=== PATIENT | male | born 1965 | race Two or more races ===

== ENCOUNTER 2025-08-22 14:36 | Inpatient (IN) | payer MEDICAID, OTHER ==
[~2025-08-22] VITALS: Ht 172.7 cm; Wt 84.5 kg
--- NOTE | 2025-08-22 15:28 | ED.PDOC ---
HPI Comments 59 year old male with no PMHx presents to the ED with a chief complaint of chest pain onset 1 week. Patient states he has been experiencing LT sided, chest pain described as a stabbing and pressure sensation for the past week. He is also experiencing generalized weakness, headache, shortness of breath, nausea, intermittent LT arm numbness. He went to see PCP, Dr. Mackenzie, was recommended to come to ED. Denies fever, chills, cough, cold, congestion, dizziness, blurred vision, abdominal pain, vomiting, diarrhea, dysuria. No other symptoms or modifying factors present at this time. Chief Complaint: Chest Pain Time Seen by MD: 15:10 Reviewed Notes: Nurses Notes, Medications, Allergies Allergies: Coded Allergies: NO KNOWN ALLERGIES (Unverified , 08/22/25) Information Source: Patient Mode of Arrival: Ambulatory Severity: Moderate Timing: Weeks Duration: Since onset Prehospital treatment: None Quality: Stabbing, Pressure Onset: At Rest Cardiac Risk Factors: None PE Risk Factors: None History of: None Modifying Factors: Nothing Associated Signs and Symptoms: SOB Past Medical History PAST MEDICAL HISTORY: Denies Surgical History: Denies all surgeries Family History Family History: Reviewed,noncontributory to illness, No family hx of Cancer, No family hx of DM, No family hx of Heart teri, No family hx of HTN, No family hx ofKidney teri, No family hx of Liver teri, No family hx of Lung teri, No family hx of Stroke Social History Smoker: Non-Smoker Alcohol: Occasionally Drugs: Denies Drug Use Lives In: Home Constitutional: reports: weakness; denies: chills, diaphoresis, fatigue, fever, malaise, sweats, others EENTM: denies: blurred vision, double vision, ear bleeding, ear discharge, ear drainage, ear pain, ear ringing, eye pain, eye redness, hearing loss, mouth ryan n, mouth swelling, nasal discharge, nose bleeding, nose congestion, nose pain, photophobia, tearing, throat pain, throat swelling, voice changes, others Respiratory: reports: shortness of breath; denies: cough, hemoptysis, orthopnea, SOB at rest, SOB with excertion, stridor, wheezing, others Cardiovascular: reports: chest pain; denies: dizzy spells, diaphoresis, Dyspnea on exertion, edema, irregular heart beat, left arm pain, lightheadedness, palpitations, PND, syncope, others Gastrointestinal: reports: nausea; denies: abdomen distended, abdominal pain, blood streaked bowels, constipated, diarrhea, dysphagia, difficulty swallowing, hematemesis, melena, poor appetite, poor fluid intake, rectal bleeding, rectal pain, vomiting, others Genitourinary: denies: burning, dysuria, flank pain, frequency, hematuria, incontinence, penile discharge, penile sore, pain, testicle pain, testicle swelling, urgency, others Neurological: reports: headache, weakness; denies: dizziness, fainting, left sided numbness, left sided weakness, numbness, paresthesia, pre-existing deficit, right sided numbness, right sided weakness, seizure, speech problems, tingling, tremors, others Musculoskeletal: denies: back pain, gout, joint pain, joint swelling, muscle pain, muscle stiffness, neck pain, others Integumetry: denies: bruises, change in color, change in hair/nails, dryness, laceration, lesions, lumps, rash, wounds, others Allergic/Immunocompromised: denies: Difficulty Healing, Frequent Infections, Hives, Itching, others Hematologic/Lymphatic: denies: anemia, blood clots, easy bleeding, easy bruising, swollen glands, others Endocrine: denies: excessive hunger, excessive sweating, excessive thirst, excessive urination, flushing, intolerance to cold, intolerance to heat, unexplained weight gain, unexplained weight loss, others Psychiatric: denies: anxiety, bipolar disorder, depression, hopeless, panic disorder, schizophrenia, sleepless, suicidal, others All Other Systems: Reviewed and Negative Physical Exam General Appearance: Moderate Distress HEENT: Normal ENT Inspection, Pharynx Normal, TMs Normal Neck: Full Range of Motion, Non-Tender, Normal, Normal Inspection Respiratory: Chest Non-Tender, Lungs Clear, No Accessory Muscle Use, No Respiratory Distress, Normal Breath Sounds Cardiovascular: No Edema, No JVD, No Murmur, No Gallop, Normal Peripheral Pulses, Regular Rate/Rhythm Breast Exam: Deferred Gastrointestinal: No Organomegaly, Non Tender, No Pulsatile Mass, Normal Bowel Sounds, Soft Genitalia: Deferred Pelvic: Deferred Rectal: Deferred Extremities: No calf tenderness, Normal capillary refill, Normal inspection, Normal range of motion, Non-tender, No pedal edema Musculoskeletal : Apperance: Normal Neurologic: Alert, penal officer II-XII nml as Tested, No Motor Deficits, Normal Affect, Normal Mood, No Sensory Deficits Cerebellar Function: Normal Reflexes: Normal Skin: Dry, Normal Color, Warm Lymphatic: No Adenopathy EKG EKG : Pulse Rate (adult): 61 Stone: Normal Cardiac Rhythm: NSR Was a procedure done? Was a procedure done?: No CP Differential Dx Differential Diagnosis: Angina, [place], Pulmonary Embolus Differential Diagnosis: CHF Differential Diagnosis: Pericarditis X-Ray, Labs, Meds, VS Vital Signs Date Time Temp Pulse Resp B/P (MAP) Pulse Ox O2 Delivery O2 Flow Rate FiO2 08/22/25 15:55 Room Air* 0 21 08/22/25 15:28 61 08/22/25 14:42 61 08/22/25 14:39 98.7 62 20 158/57 97 98.7 Lab Test 08/22/25 15:50 08/22/25 14:48 Range/Units Troponin I High Sensitivity 4 4 </=54 ng/L White Blood Count 5.1 4.4-10.8 10^3/uL Red Blood Count 4.94 4.5-5.90 10^6/uL Hemoglobin 15.4 13.5-17.5 g/dL Hematocrit 45.3 41.0-53.0 % Mean Corpuscular Volume 91.6 80.0-100.0 fL Mean Corpuscular Hemoglobin 31.2 28.0-32.0 pg Mean Corpuscular Hemoglobin Concent 34.0 32.0-36.0 g/dL Red Cell Distribution Width 13.9 11.8-14.3 % Platelet Count 235 140-450 10^3/uL Mean Platelet Volume 9.4 6.9-10.8 fL Neutrophils (%) (Auto) 69.5 37.0-80.0 % Lymphocytes (%) (Auto) 23.5 10.0-50.0 % Monocytes (%) (Auto) 6.4 0.0-12.0 % Eosinophils (%) (Auto) 0.4 0.0-7.0 % Basophils (%) (Auto) 0.2 0.0-2.0 % Neutrophils # (Auto) 3.5 1.6-8.6 10 ^3/uL Lymphocytes # (Auto) 1.2 0.4-5.4 10 ^3/uL Monocytes # (Auto) 0.3 0-1.3 10 ^3/uL Eosinophils # (Auto) 0 0-0.8 10 ^3/uL Basophils # (Auto) 0 0-0.2 10 ^3/uL Nucleated Red Blood Cells 0.3 % Sodium Level 141 136-145 mmol/L Potassium Level 4.4 3.5-5.1 mmol/L Chloride Level 105 98-107 mmol/L Carbon Dioxide Level 26 20-31 mmol/L Anion Gap 10 5-15 Blood Urea Nitrogen 12 9-23 mg/dL Creatinine 1.01 0.700-1.30 mg/dL Glomerular Filtration Rate Calc 85 >90 mL/min BUN/Creatinine Ratio 11.9 10.0-20.0 Serum Glucose 106 74-106 mg/dL Calcium Level 9.4 8.7-10.4 mg/dL Current Medications Medications (Trade) Dose Ordered Sig/Amber Route Start Time Stop Time Status Last Admin Aspirin 162 mg ONCE ONCE PO 08/22/25 15:15 08/22/25 15:16 DC 08/22/25 15:54 IV Hep-Lock was established The patient was given aspirin here in the emergency department' Images Reviewed?: Images reviewed and evaluated by me Time of 1ST Reevaluation: 15:40 Reevaluation 1ST: Unchanged Patient Education/Counseling: Diagnosis, Treatment, Prognosis Family Education/Counseling: No Family Present SEPSIS Sepsis Screen Date sepsis recognized/suspect: Aug 22, 2025 Time Sepsis recognized/suspect: 1439 Recent Procedure: No On Antibiotic Therapy: No Respiratory Rate >20: No Heart Rate >90: No Temp<36 C (96.8 F) or >38.3 C: No SBP <90 or MAP <65 mmHG: No New Acute Mental Status Change: No Is the patient on CPAP, BIPAP,: No Physician Orders Troponin-I Hs (08/22/25 17:39) Electrocardigram (08/22/25 15:39) Electrocardigram (08/22/25 17:39) Pulse Oximetry (08/22/25 15:13) Chest Two Views Routine (08/22/25 15:13) Heplock Iv (08/22/25 15:13) Fire Watchman (08/22/25 15:13) Blood Pressure (08/22/25 15:13) Vital Signs Date Time Temp Pulse Resp B/P (MAP) Pulse Ox O2 Delivery O2 Flow Rate FiO2 08/22/25 15:55 Room Air* 0 21 08/22/25 15:28 61 08/22/25 14:42 61 08/22/25 14:39 98.7 62 20 158/57 97 98.7 Laboratory Tests Test 08/22/25 14:48 White Blood Count 5.1 10^3/uL (4.4-10.8) Medications Medications Dose Ordered Sig/Amber Route Start Time Stop Time Status Last Admin Dose Admin Aspirin 162 mg ONCE ONCE PO 08/22/25 15:15 08/22/25 15:16 DC 08/22/25 15:54 Departure 1 Departure Time of Disposition: 16:24 Impression: Primary Impression: Acute myocardial ischemia Disposition: ADMITTED INPATIENT Admit to: Tele Condition: Fair Critical Care Note Critical Care Time?: No Stability Stability form required: Yes Unstable for transfer: Telemetry monitoring (Telemetry monitoring required), ED Physician Assesment (Clinical assesment) Heart Score Heart Score: Heart Score Response (Comments) Value History Moderate Suspicious 1 EKG Normal 0 Age 45-64 1 Risk Factors 1 or 2 risk factors 1 Troponin Normal limit 0 Total 3 I personally scribed for CEASAR GORMAN MD ([email or web address]) on 08/22/25 at 15:28. Electronically submitted by Jie Tong ([email or web address]). CEASAR GORMAN MD Aug 22, 2025 15:28
--- NOTE | 2025-08-22 15:55 | DVH ---
CLINICAL HISTORY: cp TECHNIQUE: Chest 2 views of the chest were obtained. COMPARISON: None FINDINGS: The heart size and pulmonary vasculature are normal. The lungs are clear. No pleural effusion is pres ent. IMPRESSION: NO ACUTE CARDIOPULMONARY PROCESS.
[2025-08-22 15:56] LABS: Hematocrit 45.3 % (41.0-53.0); Hemoglobin 15.4 g/dL (13.5-17.5); Mean Corpuscular Hemoglobin 31.2 pg (28.0-32.0); Mean Corpuscular Volume 91.6 fL (80.0-100.0); Nucleated Red Blood Cells % 0.3 %
[2025-08-22 16:01] LABS: Chloride 105 mmol/L (98-107); Potassium 4.4 mmol/L (3.5-5.1); Sodium 141 mmol/L (136-145)
[2025-08-22 16:02] LABS: Anion Gap 10 (5-15); Carbon Dioxide 26 mmol/L (20-31)
[2025-08-22 16:03] LABS: Calcium 9.4 mg/dL (8.7-10.4)
[2025-08-22 16:08] LABS: BUN/Creatinine Ratio 11.9 (10.0-20.0); Blood Urea Nitrogen 12 mg/dL (9-23)
[2025-08-22 16:09] LABS: Glucose 106 mg/dL (74-106)
--- NOTE | 2025-08-22 16:09 | ECG ---
[facility] Test Date: 2025-08-22 Test Time: 16:08:35 Pat Name: HANDY CHARLES Department: Room: Gender: M Otr Owner Operator: ARACELIS : 1965 Requested By: CEASAR GORMAN Order Number: [id number] Reading MD: Measurements Intervals [place] Rate: 51 P: 52 RI: 152 QRS: 57 QRSD: 92 T: 50 QT: 461 QTc: 425 Interpretive Statements Sinus rhythm Left atrial enlargement Please click the below link to view image of tracing.
[2025-08-22] MEDS ORDERED: MORPHINE SULFATE 4 MG/ML SYR/VIAL IV PRN (18:00)
[2025-08-22] MEDS ORDERED: NITROGLYCERIN 0.4 MG SL TAB SL PRN (18:00)
[2025-08-22] MEDS ORDERED: ACETAMINOPHEN 325 MG TAB PO PRN (18:00)
--- NOTE | 2025-08-22 18:05 | DVHHP2 ---
History of Present Illness History of Present Illness Patient is 59 years old male with no significant past medical history came with a complaint of chest pain. As per patient chest pain started 71 for a while he was walking back from a store, sudden onset, left-sided, pressure-like, radiating to the left arm, associated with nausea and shortness of breaths. Patient also endorsed palpitation and dizziness during the chest pain. Reported chest pain increases with deep breathing time to time. Patient denied any fever, cough, diarrhea, acute joint redness or swelling dysarthria or change in vision. Complaint patient went to see his primary care physician Dr. Mackenzie and primary care physician sent the patient ER for further evaluation and care. Initial EKG revealed sinus rhythm, no acute ST-T wave changes. Troponin I with a normal limit, chest x-ray no acute cardiopulmonary abnormality. PMH-none PSH- none Family history-none Allergy- none Personal History/ Social History- denies smoking, occasionally drinks beer, no substance abuse, lives with the family Review of other system Gastrointestinal- denies any rectal bleeding, nausea or vomiting Musculoskeletal-denies acute joint swelling or tenderness or redness Neurological- denies acute dysarthria, dysphagia, change in vision Psychiatry- denies depression or SI or HI Skin- denies acute rash or purpura Review of Systems Review of Systems General examination- awake, alert, oriented HEENT- PEERLA, no acute nasal discharge Cardiovascular- S1-S2 audible, rate and rhythm regular, no murmur Respiratory- CTAB, no wheeze or rhonchi Gastrointestinal-nontender, bowel sound+. Nondistended Musculoskeletal-no acute joint swelling or tenderness or redness Lower extremity- no leg edema Neurological- cranial nerves intact, no acute dysarthria or dysphagia Psychiatry- denies depression or SI or HI Skin- no acute rash or purpura Allergies: Coded Allergies: NO KNOWN ALLERGIES (Unverified , 08/22/25) Medications Current Medications Medications Dose Ordered Sig/Amber Route Start Time Stop Time Status Last Admin Dose Admin Enoxaparin Sodium 40 mg DAILY SC 08/23/25 10:00 UNV Acetaminophen 650 mg Q6HP PRN PO 08/22/25 18:00 UNV Nitroglycerin 0.4 mg Q5MINP PRN SL 08/22/25 18:00 UNV Morphine Sulfate 2 mg Q30M PRN IV 08/22/25 18:00 UNV Aspirin 81 mg DAILY PO 08/22/25 18:15 UNV Atorvastatin Calcium 40 mg HS PO 08/22/25 18:15 UNV Exam Vital Signs Vital Signs Date Time Temp Pulse Resp B/P (MAP) Pulse Ox O2 Delivery O2 Flow Rate FiO2 08/22/25 16:08 51 08/22/25 15:55 Room Air* 0 21 08/22/25 14:39 98.7 20 158/57 97 98.7 Labs/Xrays Labs Test 08/22/25 15:50 08/22/25 14:48 Range/Units Troponin I High Sensitivity 4 </=54 ng/L White Blood Count 5.1 4.4-10.8 10^3/uL Red Blood Count 4.94 4.5-5.90 10^6/uL Hemoglobin 15.4 13.5-17.5 g/dL Hematocrit 45.3 41.0-53.0 % Mean Corpuscular Volume 91.6 80.0-100.0 fL Mean Corpuscular Hemoglobin 31.2 28.0-32.0 pg Mean Corpuscular Hemoglobin Concent 34.0 32.0-36.0 g/dL Red Cell Distribution Width 13.9 11.8-14.3 % Platelet Count 235 140-450 10^3/uL Mean Platelet Volume 9.4 6.9-10.8 fL Neutrophils (%) (Auto) 69.5 37.0-80.0 % Lymphocytes (%) (Auto) 23.5 10.0-50.0 % Monocytes (%) (Auto) 6.4 0.0-12.0 % Eosinophils (%) (Auto) 0.4 0.0-7.0 % Basophils (%) (Auto) 0.2 0.0-2.0 % Neutrophils # (Auto) 3.5 1.6-8.6 10 ^3/uL Lymphocytes # (Auto) 1.2 0.4-5.4 10 ^3/uL Monocytes # (Auto) 0.3 0-1.3 10 ^3/uL Eosinophils # (Auto) 0 0-0.8 10 ^3/uL Basophils # (Auto) 0 0-0.2 10 ^3/uL Nucleated Red Blood Cells 0.3 % Sodium Level 141 136-145 mmol/L Potassium Level 4.4 3.5-5.1 mmol/L Chloride Level 105 98-107 mmol/L Carbon Dioxide Level 26 20-31 mmol/L Anion Gap 10 5-15 Blood Urea Nitrogen 12 9-23 mg/dL Creatinine 1.01 0.700-1.30 mg/dL Glomerular Filtration Rate Calc 85 >90 mL/min BUN/Creatinine Ratio 11.9 10.0-20.0 Serum Glucose 106 74-106 mg/dL Calcium Level 9.4 8.7-10.4 mg/dL SEPSIS Sepsis Screen Date sepsis recognized/suspect: Aug 22, 2025 Time Sepsis recognized/suspect: 1438 Recent Procedure: No On Antibiotic Therapy: No Respiratory Rate >20: No Heart Rate >90: No Temp<36 C (96.8 F) or >38.3 C: No SBP <90 or MAP <65 mmHG: No New Acute Mental Status Change: No Is the patient on CPAP, BIPAP,: No Physician Orders Electrocardigram (08/22/25 15:39) Electrocardigram (08/22/25 17:39) Pulse Oximetry (08/22/25 15:13) Chest Two Views Routine (08/22/25 15:13) Heplock Iv (08/22/25 15:13) Ship Surveyor (08/22/25 15:13) Blood Pressure (08/22/25 15:13) Admit (08/22/25 18:00) Allergies (08/22/25 18:00) Code Status (08/22/25 18:00) Enoxaparin Sodium (Lovenox) (08/23/25 10:00) Complete Blood Count (08/23/25 04:00) Comprehensive Metabolic Panel (08/23/25 04:00) Cardiac Diet-2gna,Lofat,Lochol (08/22/25 Dinner) Echo 2d Mode Cardiac Dop (08/22/25 18:00) Acetaminophen Tablet (Tylenol Tablet) (08/22/25 18:00) Nitroglycerin Sublingual (Ntrostat Subli (08/22/25 18:00) Morphine Sulfate Injection (08/22/25 18:00) Stat Ekg For Chest Pain (08/22/25 18:00) Notify Md Of Changes From Base (08/22/25 18:00) Aeroplane Pilot For 24 Hours (08/22/25 18:00) Aspirin Tablet (08/22/25 18:15) Atorvastatin (Lipitor) (08/22/25 18:15) Pantoprazole Tablet (Protonix Tablet) (08/22/25 18:15) Vital Signs Date Time Temp Pulse Resp B/P (MAP) Pulse Ox O2 Delivery O2 Flow Rate FiO2 08/22/25 16:08 51 08/22/25 15:55 Room Air* 0 21 08/22/25 15:28 61 08/22/25 14:42 61 08/22/25 14:39 98.7 62 20 158/57 97 98.7 Laboratory Tests Test 08/22/25 14:48 White Blood Count 5.1 10^3/uL (4.4-10.8) Medications Medications Dose Ordered Sig/Amber Route Start Time Stop Time Status Last Admin Dose Admin Aspirin 162 mg ONCE ONCE PO 08/22/25 15:15 08/22/25 15:16 DC 08/22/25 15:54 162 MG Assessment/Plan Assessment/Plan Assessment and plan # acute chest pain, rule out acute coronary syndrome # unstable angina #Palpitation -EKG with a sinus rhythm, no ST-T wave changes -troponin I with a normal limit -pending echo 2D -continue aspirin 81 mg p.o. daily -continue atorvastatin 40 mg p.o. q.h.s. -monitor vitals -continue telemetry # history of elevated blood pressure -monitor vitals/blood pressure Goals of care, Code status full code ; discussed with >15 minutes PUD prophylaxis: Pantoprazole DVT prophylaxis: Lovenox Plan discussed with Dr. Noonan , nursing staff, Total time spent on patient evaluation, chart review, assessment and plan, discussion discussion >35 minutes Plan discussed with: Patient, Spouse, Other (RN) My Orders Orders - YASIR VELARDE RESIDENT Procedure Category Date Status Time Admit ADMIT 08/22/25 Transmitted 18:00 Allergies RENU 08/22/25 In Process 18:00 Code Status CODE 08/22/25 Transmitted 18:00 Enoxaparin Sodium PHA 08/23/25 Logged (Lovenox) 10:00 Complete Blood Count LAB 08/23/25 Verified 04:00 Comprehensive LAB 08/23/25 Verified Metabolic Panel 04:00 Cardiac DIET 08/22/25 Transmitted Diet-2gna,Lofat,Lochol Dinner Echo 2d Mode Cardiac US 08/22/25 Logged DOP 18:00 Acetaminophen Tablet PHA 08/22/25 Logged (Tylenol Tablet) 18:[address] [facility] 08/22/25 Logged Sublingual (Ntrostat 18:[address] [facility] 08/22/25 Logged Injection 18:00 Stat Ekg For Chest [facility] 08/22/25 In Process Pain 18:00 Notify Md Of Changes [facility] 08/22/25 In Process From Base 18:00 Aeroplane Pilot For RENU 08/22/25 In Process 24 Hours 18:[address] [facility] 08/22/25 Logged 18:15 Atorvastatin (Lipitor) [facility] 08/22/25 Logged 18:[address] [facility] 08/22/25 Logged (Protonix Tablet) 18:15 Date of Service: Aug 22, 2025 Billing Provider: DOT NOONAN MD Common Visit Codes: [id number] INP/OBS CARE (HIGH) Secondary Visit Codes: [id number] CARE PLAN 30 MINUTES YASIR VELARDE RESIDENT Aug 22, 2025 18:05
[2025-08-22] MEDS: ATORVASTATIN 20 MG TAB PO SCH (18:29)
[2025-08-22] MEDS: PANTOPRAZOLE 40 MG TAB PO SCH (18:29)
[2025-08-22 18:58] LABS: Triglycerides 109 mg/dL (< 150)
[2025-08-22 19:00] LABS: Cholesterol 189 mg/dL (< 200); HDL Cholesterol 59 mg/dL (40-59)
[2025-08-22 20:27] LABS: Alkaline Phosphatase 70.0 U/L (46-116); Magnesium 2.1 mg/dL (1.6-2.6); Total Protein 7.4 g/dL (5.7-8.2)
[2025-08-22 20:28] LABS: Bilirubin, Direct 0.1 mg/dL (<0.3); Bilirubin, Total 0.5 mg/dL (0.2-1.0)
--- NOTE | 2025-08-22 20:44 | ECG ---
[facility] Test Date: 2025-08-22 Test Time: 14:42:46 Pat Name: HANDY CHARLES Department: Room: [address] [place] [address] Gender: M Systems Engineer: ZENIA : 1965 Requested By: CEASAR GORMAN Order Number: [id number] Reading MD: Measurements Intervals [place] Rate: 61 P: 39 WA: 147 QRS: 57 QRSD: 90 T: 55 QT: 431 QTc: 434 Interpretive Statements Sinus rhythm Probable left atrial enlargement Please click the below link to view image of tracing.
[2025-08-22 21:13] LABS: Alanine Aminotransferase 111.0 U/L (7-40); Albumin 4.8 g/dL (3.2-4.8)
[2025-08-22 21:53] VITALS: BP 147/78; PULSE 51; RESP 18; TEMP 98.2; O2SAT 98
[2025-08-22 22:05] LABS: Urine Protein, UAD Negative (Negative)
[2025-08-22 22:12] VITALS: BP 147/78; PULSE 51; RESP 18; TEMP 98.2; O2SAT 98
[2025-08-22 22:15] LABS: Amphetamine Screen, Urine Neg (NEGATIVE); Barbiturate Scree,Urine Neg (NEGATIVE); Benzodiazephine Screen, Urine Neg (NEGATIVE); Cannabinoid Screen, Urine Neg (NEGATIVE); Cocaine Screen, Urine Neg (NEGATIVE); Opiate Scree,Urine Neg (NEGATIVE); Phencyclidine Screen, Urine Neg (NEGATIVE)
[2025-08-23] VITALS (9 sets, daily range): BP systolic 124–138; BP diastolic 68–83; PULSE 49–67; RESP 18–19; TEMP 97.8–98.2; O2SAT 97–99
--- NOTE | 2025-08-23 03:37 | ECG ---
[facility] Test Date: 2025-08-22 Test Time: 19:33:58 Pat Name: HANDY CHARLES Department: ED Room: 0296T Gender: M Sap Portal Architect: MARCELO : 1965 Requested By: CEASAR GORMAN Order Number: [id number] Reading MD: Measurements Intervals [place] Rate: 52 P: 10 UT: 167 QRS: 34 QRSD: 90 T: 41 QT: 452 QTc: 421 Interpretive Statements Sinus rhythm Please click the below link to view image of tracing.
[2025-08-23 06:49] LABS: Hematocrit 41.1 % (41.0-53.0); Hemoglobin 14.1 g/dL (13.5-17.5); Mean Corpuscular Hemoglobin 31.2 pg (28.0-32.0); Mean Corpuscular Volume 91.0 fL (80.0-100.0); Nucleated Red Blood Cells % 0.1 %
[2025-08-23 07:07] LABS: Albumin 4.0 g/dL (3.2-4.8); Alkaline Phosphatase 56 U/L (46-116); Anion Gap 10 (5-15); BUN/Creatinine Ratio 14.8 (10.0-20.0); Bilirubin, Total 0.6 mg/dL (0.2-1.0); Blood Urea Nitrogen 13 mg/dL (9-23); Calcium 8.8 mg/dL (8.7-10.4); Carbon Dioxide 25 mmol/L (20-31); Chloride 107 mmol/L (98-107); Potassium 3.6 mmol/L (3.5-5.1); Sodium 142 mmol/L (136-145); Total Protein 6.3 g/dL (5.7-8.2)
[2025-08-23 07:09] LABS: Alanine Aminotransferase 82 U/L (7-40); Glucose 111 mg/dL (74-106)
--- NOTE | 2025-08-23 08:56 | DVHPNRES ---
Progress Note Date Seen: Aug 23, 2025 Resident Creating Document: YASIR VELARDE RESIDENT Medical Necessity Reason Pt with a Central, PICC or Fol: No Subjective Review of Systems Patient is 59 years old male with no significant past medical history came with a complaint of chest pain. As per patient chest pain started 71 for a while he was walking back from a store, sudden onset, left-sided, pressure-like, radiating to the left arm, associated with nausea and shortness of breaths. Patient also endorsed palpitation and dizziness during the chest pain. Reported chest pain increases with deep breathing time to time. Patient denied any fever, cough, diarrhea, acute joint redness or swelling dysarthria or change in vision. Complaint patient went to see his primary care physician Dr. Mackenzie and primary care physician sent the patient ER for further evaluation and care. Initial EKG revealed sinus rhythm, no acute ST-T wave changes. Troponin I with a normal limit, chest x-ray no acute cardiopulmonary abnormality. PMH-none PSH- none Family history-none Allergy- none Personal History/ Social History- denies smoking, occasionally drinks beer, no substance abuse, lives with the family Patient was seen today at bedside, labs and chart reviewed. Patient has sinus bradycardia. No acute chest pain or shortness of breaths this morning. Pending echo 2D. Objective vital signs Vital Sign Date Time Temp Pulse Resp B/P (MAP) Pulse Ox O2 Delivery O2 Flow Rate FiO2 08/23/25 08:40 97.9 57 18 125/76 (92) 97 97.9 08/23/25 08:14 Room Air* 0 21 Total Intake and Output 08/22/25 08/22/25 08/23/25 15:00 23:00 07:00 Intake Total 700 ml Balance 700 ml medications Current Medications Medications Dose Ordered Sig/Amber Route Start Time Stop Time Status Last Admin Dose Admin Enoxaparin Sodium 40 mg DAILY SC 08/23/25 10:00 Acetaminophen 650 mg Q6HP PRN PO 08/22/25 18:00 Morphine Sulfate 2 mg Q30M PRN IV 08/22/25 18:00 Aspirin 81 mg DAILY PO 08/22/25 18:15 08/22/25 18:29 81 MG Atorvastatin Calcium 40 mg HS PO 08/22/25 18:15 08/22/25 22:11 40 MG Pantoprazole Sodium 40 mg DAILY@0600 PO 10/6/25 18:15 08/22/25 18:29 40 MG Examination General examination- awake, alert, oriented HEENT- PEERLA, no acute nasal discharge Cardiovascular- S1-S2 audible, rate and rhythm regular, no murmur Respiratory- CTAB, no wheeze or rhonchi Gastrointestinal-nontender, bowel sound+. Nondistended Musculoskeletal-no acute joint swelling or tenderness or redness Lower extremity- no leg edema Neurological- cranial nerves intact, no acute dysarthria or dysphagia Psychiatry- denies depression or SI or HI Skin- no acute rash or purpura laboratory and microbiology Laboratory Tests 08/23/25 05:40 Test 08/23/25 05:40 Range/Units Serum Glucose 111 H 74-106 mg/dL Problem List/Assessment/Plan Problem List/Assessment/Plan Assessment and plan # acute chest pain, rule out acute coronary syndrome # unstable angina #Palpitation -EKG with a sinus rhythm, no ST-T wave changes -troponin I with a normal limit -pending echo 2D report -continue aspirin 81 mg p.o. daily -continue atorvastatin 40 mg p.o. q.h.s. -monitor vitals -continue telemetry -plan is to do outpatient cardiac stress test # history of elevated blood pressure -monitor vitals/blood pressure Goals of care, Code status full code ; discussed with >15 minutes PUD prophylaxis: Pantoprazole DVT prophylaxis: Lovenox Plan discussed with Dr. Noonan , nursing staff, Total time spent on patient evaluation, chart review, assessment and plan, discussion discussion >35 minutes Plan discussed with: Patient, Spouse, Other (R Plan discussed with: Patient, Other (RN) My Orders My Orders Orders - YASIR VELARDE RESIDENT Procedure Category Date Status Time Allergies RENU 08/22/25 In Process 18:00 Code Status CODE 08/22/25 Transmitted 18:00 Enoxaparin Sodium PHA 08/23/25 In Process (Lovenox) 10:00 Cardiac DIET 08/22/25 Transmitted Diet-2gna,Lofat,Lochol Dinner Acetaminophen Tablet PHA 08/22/25 In Process (Tylenol Tablet) 18:00 Stat Ekg For Chest RENU 08/22/25 In Process Pain 18:00 Notify Of Changes RENU 08/22/25 In Process From Base 18:00 Onsite Case Manager For RENU 08/22/25 In Process 24 Hours 18:00 Aspirin Tablet PHA 08/22/25 In Process 18:15 Atorvastatin (Lipitor) PHA 08/22/25 In Process 18:15 Pantoprazole Tablet PHA 08/22/25 In Process (Protonix Tablet) 18:15 Morphine Sulfate PHA 08/22/25 In Process Injection 18:00 Admit ADMIT 08/22/25 Transmitted 18:16 Echo 2d Mode Cardiac US 08/23/25 Logged DOP 18:00 Date of Service: Aug 23, 2025 Billing Provider: DOT NOONAN MD Common Visit Codes: [id number] INP/OBS CARE(HIGH) YASIR VELARDE RESIDENT Aug 23, 2025 08:56 DOT NOONAN MD Aug 24, 2025 17:37
[2025-08-23] MEDS: ENOXAPARIN SOD 40 MG/0.4 ML SYRINGE SC SCH (10:31)
[2025-08-24 01:00] VITALS: BP 122/73; PULSE 56; RESP 18; TEMP 98.2; O2SAT 99
[2025-08-24 05:00] VITALS: BP 136/75; PULSE 51; RESP 18; TEMP 98.1; O2SAT 97
[2025-08-24 08:00] VITALS: PULSE 60; RESP 18; O2SAT 97
[2025-08-24 08:40] VITALS: BP 150/69; PULSE 57; RESP 16; TEMP 97.7; O2SAT 98
--- NOTE | 2025-08-24 10:04 | DVHSR ---
APPROVED REPORT EXAM: Two-dimensional and M-mode echocardiogram with Doppler and color Doppler. Blood Pressure: 134/71 mmHg INDICATION Chest Pain RISK FACTORS Height: 5'8", Weight: 181 DIMENSIONS LVDd4.8 (3.8-5.7cm)LA (2D)4.3 (1.9-4.0cm)Aortic Root3.7 (2.0-3.7cm) LVDs3.2 (2.5-4.0cm)LA (MM) (1.9-4.0cm)Aortic Cusp Exc2.2 (1.5-2.0cm) EF (%) 60.0 (55-70%)Rt. Atrium4.3 (1.9-4.0cm)Asc. Aorta3.5 cm IVSd1.0 (0.7-1.1cm)RV (D)3.8 (1.8-2.4cm) PWd0.9 (0.7-1.1cm) Mitral Valve MitralMitral Stenosis E wave0.71m/sMV Mean GR.mmHg A wave0.81m/sMV Peak GR.mmHg E/A ratio0.92D MVAcm2 DECEL [id number] 1/2 [place] Aortic Valve Aortic ValveAortic Stenosis V11.21m/Bert Mean GR.5mmHg V21.48m/Bert Peak GR.9mmHg LVOT Diameter2.4 (1.8-2.4cm)Doppler AVA3.70cm2 AI P 1/2 [id number] Pulmonic Valve V20.80m/s Tricuspid Valve TR Velocity2.31m/s [id number] Conclusion LV EF IS 65% MODERATE DEGREE AORTIC REGURGITATION NORMAL MV,TV AND PV NO EFFUSION NORMAL RV FUNCTION
[2025-08-24 11:09] VITALS: BP 152/94; PULSE 57; RESP 18; TEMP 98.2; O2SAT 97
[2025-08-24] MEDS ORDERED: PANT40TA2 PO (11:29)
[2025-08-24] MEDS ORDERED: ASPI1TAB19 PO (11:29)
[2025-08-24] MEDS ORDERED: ATOR40TA52 PO (11:29)
--- NOTE | 2025-08-24 14:13 | DVHDSRES ---
Discharge Summary Date of Admission Resident Creating Document: YASIR VELARDE RESIDENT Aug 22, 2025 at 18:16 Date of Discharge: Aug 24, 2025 Admitting Diagnosis UNSTABLE ANGINA Labs/Diagnostic Data: Laboratory Results Test 08/23/25 05:40 08/22/25 19:33 08/22/25 15:50 08/22/25 14:48 White Blood Count 4.4 10^3/uL (4.4-10.8) Red Blood Count 4.52 10^6/uL (4.5-5.90) Hemoglobin 14.1 g/dL (13.5-17.5) Hematocrit 41.1 % (41.0-53.0) Mean Corpuscular Volume 91.0 fL (80.0-100.0) Mean Corpuscular Hemoglobin 31.2 pg (28.0-32.0) Mean Corpuscular Hemoglobin Concent 34.2 g/dL (32.0-36.0) Red Cell Distribution Width 13.5 % (11.8-14.3) Platelet Count 201 10^3/uL (140-450) Mean Platelet Volume 9.6 fL (6.9-10.8) Neutrophils (%) (Auto) 45.9 % (37.0-80.0) Lymphocytes (%) (Auto) 42.9 % (10.0-50.0) Monocytes (%) (Auto) 8.7 % (0.0-12.0) Eosinophils (%) (Auto) 1.8 % (0.0-7.0) Basophils (%) (Auto) 0.7 % (0.0-2.0) Neutrophils # (Auto) 2.0 10 ^3/uL (1.6-8.6) Lymphocytes # (Auto) 1.9 10 ^3/uL (0.4-5.4) Monocytes # (Auto) 0.4 10 ^3/uL (0-1.3) Eosinophils # (Auto) 0.1 10 ^3/uL (0-0.8) Basophils # (Auto) 0 10 ^3/uL (0-0.2) Nucleated Red Blood Cells 0.1 % Sodium Level 142 mmol/L (136-145) Potassium Level 3.6 mmol/L (3.5-5.1) Chloride Level 107 mmol/L (98-107) Carbon Dioxide Level 25 mmol/L (20-31) Anion Gap 10 (5-15) Blood Urea Nitrogen 13 mg/dL (9-23) Creatinine 0.88 mg/dL (0.700-1.30) Glomerular Filtration Rate Calc 98 mL/min (>90) BUN/Creatinine Ratio 14.8 (10.0-20.0) Serum Glucose 111 mg/dL (74-106) Calcium Level 8.8 mg/dL (8.7-10.4) Total Bilirubin 0.6 mg/dL (0.2-1.0) Aspartate Amino Transferase (AST) 37 U/L (13-40) Alanine Aminotransferase (ALT) 82 U/L (7-40) Alkaline Phosphatase 56 U/L (46-116) Troponin I High Sensitivity 7 ng/L (</=54) Total Protein 6.3 g/dL (5.7-8.2) Albumin 4.0 g/dL (3.2-4.8) Urine Color Light-yellow (Yellow) Urine Clarity Clear (Clear) Urine pH 5.5 (5.0-9.0) Urine Specific Energy 1.016 (1.001-1.035) Urine Protein Negative (Negative) Urine Ketones 1+ (Negative) Urine Blood Negative /uL (Negative) Urine Nitrite Negative (Negative) Urine Bilirubin Negative (Negative) Urine Urobilinogen Normal mg/dL (Negative) Urine Leukocyte Esterase Negative /uL (Negative) Urine RBC None seen /hpf (0 - 3) Urine Microscopic WBC 1 /HPF (0-3) Urine Squamous Epithelial Cells None seen /hpf (<5) Urine Bacteria None seen /hpf (None Seen) Urine Mucus Few (None Seen) Urine Glucose Normal mg/dL (Normal) Urine Opiates Screen Neg (NEGATIVE) Urine Fentanyl Screen Neg (NEGATIVE) Urine Barbiturates Screen Neg (NEGATIVE) Urine Phencyclidine Screen Neg (NEGATIVE) Urine Amphetamines Screen Neg (NEGATIVE) Urine Benzodiazepines Screen Neg (NEGATIVE) Urine Cocaine Screen Neg (NEGATIVE) Urine Cannabinoids Screen Neg (NEGATIVE) Triglycerides Level 109 mg/dL (< 150) Cholesterol Level 189 mg/dL (< 200) LDL Cholesterol 121 mg/dL (< 100) HDL Cholesterol 59 mg/dL (40-59) Hemoglobin A1c 5.6 % A1C (<5.7) Magnesium Level 2.1 mg/dL (1.6-2.6) Direct Bilirubin 0.1 mg/dL (<0.3) B-Type Natriuretic Peptide 14.07 pg/mL (0-100) Thyroid Stimulating Hormone (TSH) 1.44 uIU/mL (0.55-4.78) Other Laboratory Tests 08/23/25 05:40 Brief Hx & Hospital Course: Patient is 59 years old male with no significant past medical history came with a complaint of chest pain. As per patient chest pain started 71 for a while he was walking back from a store, sudden onset, left-sided, pressure-like, radiating to the left arm, associated with nausea and shortness of breaths. Patient also endorsed palpitation and dizziness during the chest pain. Reported chest pain increases with deep breathing time to time. Patient denied any fever, cough, diarrhea, acute joint redness or swelling dysarthria or change in vision. Complaint patient went to see his primary care physician Dr. Mackenzie and primary care physician sent the patient ER for further evaluation and care. Initial EKG revealed sinus rhythm, no acute ST-T wave changes. Troponin I with a normal limit, chest x-ray no acute cardiopulmonary abnormality. Revealed LVEF 60%, moderate degree AR. Patient treated conservatively, symptoms improved. Patient is being discharged with the aspirin 81 mg p.o. daily, atorvastatin 40 mg p.o. q.h.s., pantoprazole 40 mg p.o. daily. Patient's meds were sent to the pharmacy electronically. Patient was advised to follow up with the primary care physician in 1-2 weeks, follow up at discharge clinic as per schedule recommended for patient cardiac stress test. Patient was hemodynamically stable on discharge Condition at Discharge: Stable Final Diagnosis/Problems List Suspected Unstable Angina INDICATION Discharge Disposition: Home Discharge Instruct/Medications Diet: Cardiac 2g Na,low cholest Activity: No Restrictions, As Tolerated Follow Up/Referral: Follow up in discharge clinic as per schedule With the PCP in 1-2 Follow up with the investigations manager for outpatient cardiac stress Medications: ASA b.i.d. Atorvastatin 40 mg p.o. q.h.s. Pantoprazole 40 mg p.o. Scheduled Aspirin (Aspirin), 81 MG PO DAILY Atorvastatin Calcium (Atorvastatin Calcium), 1 TAB PO DAILY Pantoprazole Sodium Sesquihydr (Protonix), 40 MG PO DAILY Discharge Statement: "Patient was advised to return to the ER or call 911 if any headaches, dizziness, shortness of breath, chest pain, abdominal pain, bleeding, fevers, or worsening of medical condition. Patient was counseled about treatment plan, medications, possible side effects, patientverbalized understanding. All questions were answered to the best of my ability. This discharge took greater then 30 minutes in planning, reviewing documentation, counseling the patient, and discussing with other team members." ASSESSMENT ASSESSMENT Assessment Suspected Unstable Angina Date of Service: Aug 24, 2025 Billing Provider: DOT NOONAN MD Common Visit Codes: 71274-JDQ/OBS DISCH DAY >30min YASIR VELARDE RESIDENT Aug 24, 2025 14:13 DOT NOONAN MD Aug 24, 2025 17:44
== END 2025-08-24 13:25 | disposition home or self-care (01) | DRG 198 ==
LOC: ER 14:42 → OVERFLOW 18:00 → UNDOADMIN 18:00 → OVERFLOW 18:16 → TELE-WESTW 21:44
PROVIDERS: ADMIT Student in an Organized Health Care Education/Training Program; ATTEND Student in an Organized Health Care Education/Training Program
DX: I20.0 Unstable angina (principal); I10 Essential (primary) hypertension; R00.2 Palpitations; Z79.82 Long term (current) use of aspirin
CPT/HCPCS: 36415; 71046; 80048; 80053; 80061; 80076; 80307; 81001; 83036; 83735; 83880; 84443; 84484; 85025; 93005; 93306; G0378